=== PATIENT | female | born 1950 | race Caucasian/White ===

== ENCOUNTER 2019-02-10 05:50 | Day surgery (SDC) | payer MEDICARE ==
[2019-02-10] MEDS ORDERED: ROPIVACAINE HCL (NAROPIN) /PF 5MG/ML 20ML VIAL IV ONE (05:51)
[2019-02-10] MEDS ORDERED: LIDOCAINE 2% MDV (20MG/ML) 20ML VIAL IV ONE (05:51)
[2019-02-10] MEDS ORDERED: MEPIVACAINE HCL/PF (POLOCAINE) 2% 20MG/ML VIAL INJ ONE (05:51)
[2019-02-10] MEDS ORDERED: VANCOMYCIN HCL 1 GM VIAL IVPB ONE (05:51)
[2019-02-10] MEDS ORDERED: MIDAZOLAM HCL 2MG/2ML VIAL IV ONE (05:51)
[2019-02-10] MEDS ORDERED: DEXAMETHASONE 4 MG/ML 1ML VIAL IVP ONE (05:51)
[2019-02-10] MEDS ORDERED: TRANEXAMIC ACID 1,000 MG/10 ML ML IV ONE (05:51)
[2019-02-10] MEDS ORDERED: PROPOFOL 10 MG/ML VIAL IV ONE (05:51)
[2019-02-10] MEDS ORDERED: KETAMINE HCL 100MG/1ML VIAL INJ ONE (05:51)
[2019-02-10] MEDS ORDERED: LABETALOL HCL 5MG/ML, 20ML VIAL IV ONE (05:51)
[2019-02-10] MEDS ORDERED: VANCOMYCIN 1GM/200ML PREMIX 1 GM/200 ML PIGGYBACK IVPB ONE (06:00)
[2019-02-10] MEDS ORDERED: FAMOTIDINE 20MG TABLET PO ONE (06:00)
[2019-02-10] MEDS ORDERED: METOCLOPRAMIDE 10 MG TABLET PO ONE (06:00)
[2019-02-10] MEDS ORDERED: SCOPOLAMINE 1 PATCH TDSY TD ONE (06:00)
[2019-02-10] MEDS ORDERED: CEFAZOLIN 2 Gram 2 GM/50 ML BAG IVPB ONE (06:00)
[2019-02-10] MEDS ORDERED: ACETAMINOPHEN 500 MG TABLET PO ONE (06:00)
[2019-02-10] MEDS ORDERED: RINGERS SOLUTION,LACTATED 1,000 ML IV ONE ×2 (06:35→08:10)
[2019-02-10 06:51] LABS: ABO GROUP O; ANTIBODY SCREEN NEGATIVE (NEGATIVE); RH TYPE POSITIVE
[2019-02-10] MEDS ORDERED: MAGNESIUM HYDROXIDE 30 ML UDC PO PRN (07:57)
[2019-02-10] MEDS ORDERED: ACETAMINOPHEN W/ CODEINE 300MG/60MG TABLET PO PRN ×2 (07:57)
[2019-02-10] MEDS ORDERED: ONDANSETRON 4 MG ODT TABLET SL PRN (07:57)
[2019-02-10] MEDS ORDERED: DIPHENHYDRAMINE HCL 25 MG CAPSULE PO PRN (07:57)
[2019-02-10] MEDS ORDERED: METOCLOPRAMIDE 10 MG TABLET PO PRN (07:57)
[2019-02-10] MEDS ORDERED: ACETAMINOPHEN 325 MG TAB PO PRN (07:57)
[2019-02-10] MEDS ORDERED: BISACODYL 10 MG SUPP RC PRN (07:57)
[2019-02-10] MEDS ORDERED: HYDROCODONE/APAP 7.5/325MG TABLET PO PRN ×2 (07:57)
[2019-02-10] MEDS ORDERED: KETOROLAC 30 MG/ML VIAL IVP PRN ×2 (07:57)
[2019-02-10] MEDS ORDERED: ACETAMINOPHEN W/ CODEINE 300MG/30MG TABLET PO PRN ×2 (07:57)
[2019-02-10] MEDS ORDERED: PROMETHAZINE HCL 25 MG TABLET PO PRN (07:57)
[2019-02-10] MEDS ORDERED: HYDROCODONE/APAP 5/325MG TABLET PO PRN ×2 (07:57)
[2019-02-10] MEDS ORDERED: AL HYDROX/MAG HYDROX 30ML UD PO PRN (07:57)
[2019-02-10] MEDS ORDERED: TRAMADOL HCL 50 MG TABLET PO PRN ×2 (07:57)
[2019-02-10] MEDS ORDERED: NALOXONE 0.4 MG/1 ML VIAL IVP PRN (07:57)
[2019-02-10] MEDS ORDERED: BUPIVACAINE LIPOSOME 266MG/20ML VIAL SQ ONE (08:27)
[2019-02-10] MEDS ORDERED: BUPIVACAINE 0.5% W/EPI MPF 30 ML VIAL SQ ONE (08:27)
[2019-02-10] MEDS ORDERED: VANCOMYCIN HCL 3,000 MG in RINGERS SOLUTION,LACTATED 3,000 ML IM ONE (08:27)
[2019-02-10] MEDS ORDERED: DEXTROSE 5 % AND 0.9 % NACL 1,000 ML IV PRN (10:30)
[2019-02-10] MEDS ORDERED: VANCOMYCIN HCL 500 MG in 0.9 % SODIUM CHLORIDE 100ML 100 ML IVPB SCH (11:00)
--- NOTE | 2019-02-10 13:42 | Rehab Evaluation ---
Patient Information - Patient Information Diagnosis: R knee OA Ordered Treatment: PT Evaluate and Treat Status: Initial Evaluation Surgery: Yes (L TKA) Date of Surgery: 02/10/19 Past Medical/Surgical Hx: PAST MEDICAL/SURGICAL HISTORY Past Surgical History COLECTOMY WITH J POUCH 1997 HYST 1997 C SCOPES ADIEL TONSILS AGE 16 PMH - Respiratory Hx Respiratory Disorders Yes Hx Pneumonia Yes: YRS AGO Hx Sleep Apnea Yes: MILD Hx of CPAP No PMH - Cardiovascular Hx Cardiovascular Disorders Yes Hx Edema Yes: ANKLES SOMETIMES Hx Hypertension Yes: HX OF ON NO MEDS NOW Exercise Tolerance Good PMH - Neuro Hx Neurological Disorders Yes Hx Dizziness Yes: AT TIMES PMH - GI Hx Gastrointestinal Disorders Yes Hx Gastroesophageal Reflux Yes Comment: HX UC PMH - Hx Genitourinary Disorders No Comment: S/P HYST PMH - Endocrine Hx Endocrine Disorders Yes Hx Thyroid Disease Yes: HYPO ON MEDS PMH - Musculoskeletal Hx Musculoskeletal Disorders Yes Hx Arthritis Yes: RIGHT KNEE AND WRISTS Hx Osteoporosis Yes PMH - Psych Hx Psychiatric Problems No PMH - Hematology/Oncology Hx Hematology/Oncology No Disorders Premorbid Status: Detail (Prior to surgery the patient was independent with all mobility.) Social History: Detail (The patient lives in a 2 story house with spouse with 4 steps at the enterance with 2 railings. The patient will initially be staying on the first floor. Main bathroom and bedroom are on the second floor with a flight of 15 steps inbetween floors. The bathroom is equipped with: a tub/shower combination ,handheld shower, tub seat with transfer bench and an elevated toilet. The patient has a front wheeled walker and standard cane.) Precautions: [place], Fall, Other (WBAT pm the R LE.) - Time With Patient Total Time Spent With Patient (Min): 25 Treatment Procedures: Detail (Initial Evaluation low complexity, gait training.) Subjective Information - Subjective Information Per Patient (The patient complained of R knee pain level 4 at the highest using 0-10 pain scale.) Objective Data - Mental Status Patient Orientation: Oriented x3 - ROM Not within normal limits (The patient has limited R knee AROM as to be expected following surgery. All other AROM is WNL.) - Strength/Tone Not within normal limits (The patient's R LE strength was not tested s/p surgery however is functional ie: patient is able to complete a SLR. The patient's L LE strength is functional.) - Bed Mobility Independent (The patient is independent with supine to and from sit transfer) - Transfers Independent (The patient was independent with sit to and from stand transfer and toilet transfer.) - Balance Balance Sitting: Good Balance Standing: Good - Sensation Intact - Gait Detail (The patient ambulated with front wheeled walker WBAT on the R LE independently a distance 120 feet x 1. The patient ambulated with 3 steps with use of one railing and folded walker using proper technique with supervision for safety.) Therapy Assessment - Therapy Assessment Detail (The patient was independent with bed mobility, transfers and ambulation on levels and requiring supervision for safety with ambulation on stairs. The patient has met all inpatient PT goals and is discharged from inpatient PT.) Patient Education - Patient Education Teaching Topic: Exercise/Activity (The patient was independent with TKA HEP which included : seated and supine heel slides, quad sets, hamstring sets, ankle pumps, gluteal sets and SLR.) Response: Return Demonstration Teaching Method: Demonstration, Handout Teaching Recipient: Patient Barriers To Learning: Age Related Problem List - Problem List Physical Therapy Problem List: Detail (Decreased R knee AROM and R LE strength as to be expected s/p surgery.) Goals - Goals Physical Therapy Goals: The patient has met all inpatient PT goals. Prognosis - Prognosis Good Plan - Plan Physical Therapy Plan: The patient has met all inpatient PT goals and is discharged from inpatient PT. The patient is to receive Home PT.
--- NOTE | 2019-02-10 14:01 | Rehab Evaluation ---
Patient Information - Patient Information Diagnosis: R knee OA Ordered Treatment: OT Evaluate and Treat Status: Initial Evaluation Surgery: Yes (L TKA) Date of Surgery: 02/10/19 Past Medical/Surgical Hx: PAST MEDICAL/SURGICAL HISTORY Past Surgical History COLECTOMY WITH J POUCH 1997 HYST 1997 C SCOPES ADIEL TONSILS AGE 16 PMH - Respiratory Hx Respiratory Disorders Yes Hx Pneumonia Yes: YRS AGO Hx Sleep Apnea Yes: MILD Hx of CPAP No PMH - Cardiovascular Hx Cardiovascular Disorders Yes Hx Edema Yes: ANKLES SOMETIMES Hx Hypertension Yes: HX OF ON NO MEDS NOW Exercise Tolerance Good PMH - Neuro Hx Neurological Disorders Yes Hx Dizziness Yes: AT TIMES PMH - GI Hx Gastrointestinal Disorders Yes Hx Gastroesophageal Reflux Yes Comment: HX UC PMH - Hx Genitourinary Disorders No Comment: S/P HYST PMH - Endocrine Hx Endocrine Disorders Yes Hx Thyroid Disease Yes: HYPO ON MEDS PMH - Musculoskeletal Hx Musculoskeletal Disorders Yes Hx Arthritis Yes: RIGHT KNEE AND WRISTS Hx Osteoporosis Yes PMH - Psych Hx Psychiatric Problems No PMH - Hematology/Oncology Hx Hematology/Oncology No Disorders Premorbid Status: Detail (Prior to surgery the patient was independent with all mobility and ADLs.) Social History: Detail (The patient lives in a 2 story house with spouse with 4 steps at the enterance and bilateral hand rail. The patient will initially be staying on the first floor where there is a 1/2 bath. Main bathroom and bedroom are on the second floor. Patient has a tub/shower combination with curtain enclosure and hand held shower head. No grab bars in bathroom. Patient owns 2WW, single point cane, tub bench.) - Time With Patient Total Time Spent With Patient (Min): 20 Treatment Procedures: Detail (OT eval LOW) Subjective Information - Subjective Information Per Patient Objective Data - Pain Pain Present: Yes Pain Intensity: 4 (R knee) Pain Scale Used: Numeric (1 - 10) - Mental Status Patient Orientation: Oriented x3 - Visual Perception Appears within normal limits for therapeutic activities - ROM Within normal limits (BUE's) - Strength/Tone Within normal limits (BUE's) - Coordination Appears within normal limits for therapeutic activities - Bed Mobility Independent (supine<>SS EOB) - Transfers Independent (sit<>stand w/ 2WW) - Balance Balance Sitting: Good - Gait Detail (SEE PT NOTE for further info. Patient ambulated from room to nurse's station independently with 2WW.) - ADL's/IADL's Detail (Patient educated and demonstrated independence with modified drsg techniques for LB drsg. Patient independent and safe with UB and LB drsg. Patient threaded shorts over feet in sitting then stood without support from walker to complete pants pull through hooker hips and UB drsg with no loss of balance. Patient ambulated from bed to BR with 2WW independently. Independent toilet t/f. Independent clothing management.) Therapy Assessment - Therapy Assessment Detail (Patient safe and independent with drsg techniques. Patient safe to return home. No further inpatient OT needed at this time.) Prognosis - Prognosis Good Plan - Plan Occupational Therapy Plan: No further inpatient OT needed at this time. Patient to be d/c'd from OT.
[2019-02-10] MEDS ORDERED: DOCUSATE SODIUM 100 MG CAPSULE PO SCH (22:00)
--- NOTE | 2019-02-14 10:51 | Operative Note ---
DATE OF SURGERY: 02/10/2019 PREOPERATIVE DIAGNOSIS: End-stage right knee arthrosis. POSTOPERATIVE DIAGNOSIS: End-stage right knee arthrosis. OPERATION: Right total knee arthroplasty. SURGEON: Homer Hall MD ANESTHESIA: Spinal. ANESTHESIA PROVIDER: RANDELL Lowe. COMPLICATIONS: None. ESTIMATED BLOOD LOSS: Minimal. TOURNIQUET TIME: No tourniquet use. Aquamantys used throughout the entire case. OPERATIVE FINDINGS: [id number] lateral compartment with valgus arthrosis. COMPONENTS PLACED: A 2 g vancomycin cemented [employer] Journey II Oxinium total knee arthroplasty system size 5 femoral component, a size 4 tibial baseplate, a 10 mm thick tibial poly insert, and 32 mm cemented patellar component. INDICATIONS: This is a 69-year-old female with end-stage knee arthrosis for several years. Failed nonoperative treatment. Scheduled for procedure above. I explained all risks and benefits in detail for the diagnosis and procedure including but not limited to infection, nerve injury, vessel injury, persistent pain, stiffness, numbness, tingling in the knee, periprosthetic fracture, need for resection arthroplasty if components become infected or loosen, nerve injury, vessel injury, blood clot and need for anticoagulation to prevent blood clots and risks associated with these medications, and need for further procedures. All her questions were answered. Rehab and healing course were outlined. She agreed to proceed. PROCEDURE: The patient brought to the OR, placed in the supine position after spinal anesthesia induced. The right lower extremity and knee were prepped and draped in sterile fashion. Right knee prepped again with Chloraprep after it was draped. Intraoperative timeout was performed. Next, an anterior incision was marked. The knee was infiltrated with 0.5% Marcaine with epinephrine, Exparel, and tranexamic mixture. The leg was exsanguinated with Esmarch but tourniquet was not inflated. Planned on using Aquamantys throughout the entire case. The tourniquet was outpatient total knee arthroplasty. Skin and subcutaneous tissue dissected down using Aquamantys again in each layer, carefully cauterizing any bleeders. Incised the capsule medially along the medial border of the patella to the tibial tubercle. Incised the vastus medialis in line with its fibers in a mid vastus approach. I partially resected the retropatellar fat pad, elevated the capsule subperiosteally and medially, everted the patella, flexed the knee. She had [id number] lateral compartment arthrosis. Drilled intracondylar drill holes, inserted the intramedullary guide reyna, 6-degree cutting block, aligned off the distal femoral condyles in +2 mm position and cross pinned it. Cut the distal femoral condyles. On the distal femoral condyle, we placed a sizing jig and sized it to be right on size 5. Through the previously-placed pin holes, we placed a size 5 cutting jig. We dialed the anterior cut so it would come out flush without notching. We cut that cut and verified it was a good cut and then pinned it. Cut the remainder of the chamfer cuts in the usual fashion. Placed a trial 5 component, centered it, pinned it, removed osteophytes laterally, and then inserted the femoral resection collet, reamed out and box osteotomed the cruciate bone block. Next, attention was turned to the tibia. Placed the external alignment jig in the tibia, seated the spikes in the tubercular groove 2 fingerbreadths distal to the anterior tibial cortex. Referenced for a 7 mm cut off the higher medial plateau. We pinned the cutting jig provisionally in place. Next, we placed a drop reyna in the cutting jig and verified alignment with the cutting jig perpendicular to the tibial anatomic axis, cross-pinned it completing fixation, and cut the tibia. We removed osteophytes off the posterior femoral condyle. Checked the flexion/extension gaps. Sized up to a 10 mm thick poly insert to allow for 1-2 mm of varus/valgus laxity in flexion/extension. Next, sized the tibial baseplate to a size 4. Replaced all trial components, set the tibial baseplate again rotation and extension using the alignment reyna centered on hip joint and ankle joint and had normal anatomic valgus orientation. Attention was turned to the patella and measured the patella to be 21 mm, set the cutting jig at 12 mm to allow for a 9 mm thick insert. Cut the patella. It was right no 12. Chamfered off lateral patellar facet and sized it to be 32. Medialized as much as possible, drilled 3 peg holes, and mixed cement. Cauterized carefully again the posterior capsule. Again each layer was cauterized with our Aquamantys. Next, precoated both surfaces, impacted down the tibial component first, then the femoral component. Placed the trial tibial poly liner, held the knee in extension, clamped down the patellar component until the cement hardened removing excess cement. Next, took the knee in flexion, distracted the knee with the bone hook and sponge, placed a bone plug previously in the femoral canal hole. Next, removed any excess cement. Injected the posterior capsule with our 0.5% Marcaine with epinephrine, tranexamic acid, and Exparel mixture and inserted the real tibial poly insert. Verify that it was interlocked medially and laterally. We found our range of motion was still the same. We closed the knee in flexion and closed the capsule using running #2 quill suture. Closed skin with several 2-0 buried Vicryl and the provisional after we injected the rest of our local and placed a provisional dressing changed to SARAH dressing prior to discharge. Sterile dressing and Patrick wrap. The patient tolerated the procedure well. No intraoperative complications. Sponge, needle, and blade counts correct. Recovery room stable, neurovascular intact. Discharged as an outpatient total joint. She will follow up in 2 weeks. CC: Joanna SONI
== END 2019-02-10 14:34 | disposition home health service (06) ==
LOC: SUR 05:50 → MEDSURG 10:19 → SUR 14:34
PROVIDERS: ATTEND Orthopaedic Surgery
DX: M17.11 Unilateral primary osteoarthritis, right knee (principal); I10 Essential (primary) hypertension; E78.00 Pure hypercholesterolemia, unspecified; K51.90 Ulcerative colitis, unspecified, without complications; K21.9 Gastro-esophageal reflux disease without esophagitis; E03.9 Hypothyroidism, unspecified
CPT/HCPCS: 76942; 86850; 86900; 86901; J0670; J1885; J3370; J3490; J7120